=== PATIENT | female | born 1950 | race Hispanic/Latino ===

== ENCOUNTER 2016-05-22 10:53 | Outpatient (CLI) | payer MEDICARE ==
--- NOTE | 2016-05-23 11:09 | Vascular Lab Report ---
Right Lower Extremity Venous Duplex Study: Reason for Exam: Right leg pain. Comments on the Right: All veins visualized are freely compressible without evidence of internal echogenicity. Flow is spontaneous and phasic throughout. No evidence of acute or chronic thrombus is seen in any of the vessels visualized. Comments on the Left: A limited duplex study was done of the proximal veins of the left lower extremity. All veins visualized are freely compressible without evidence of internal echogenicity. Flow is spontaneous and phasic throughout. No evidence of acute or chronic thrombus is seen in any of the vessels visualized. Impression: No evidence of acute or chronic deep venous thrombosis in the right lower extremity.
== END 2016-05-22 10:54 | disposition home or self-care (01) ==
LOC: VAS 10:53
PROVIDERS: ATTEND Internal Medicine
DX: I70.211 Atherosclerosis of native arteries of extremities with intermittent claudication, right leg (principal)

== ENCOUNTER 2018-01-09 09:35 | Outpatient (CLI) | payer MEDICARE ==
--- NOTE | 2018-01-10 11:21 | Vascular Lab Report ---
Right Lower Extremity Venous Duplex Study: Reason for Exam: Pain and swelling of the right lower extremity. Comments on the Right: All veins visualized are freely compressible without evidence of internal echogenicity. Flow is spontaneous and phasic throughout. No evidence of acute or chronic thrombus is seen in any of the vessels visualized. Right common femoral vein reflux is greater than 5 seconds. Comments on the Left: A limited duplex study was done of the proximal veins of the left lower extremity. All veins visualized are freely compressible without evidence of internal echogenicity. Flow is spontaneous and phasic throughout. No evidence of acute or chronic thrombus is seen in any of the vessels visualized. Impression: No evidence of acute or chronic deep venous thrombosis in the right lower extremity. Right common femoral vein is greater than 5 seconds. Consider further evaluation.
== END 2018-01-09 09:36 | disposition home or self-care (01) ==
LOC: VAS 09:35
PROVIDERS: ATTEND Internal Medicine Cardiovascular Disease
DX: I87.2 Venous insufficiency (chronic) (peripheral) (principal); I10 Essential (primary) hypertension; K21.9 Gastro-esophageal reflux disease without esophagitis; E78.00 Pure hypercholesterolemia, unspecified; E03.9 Hypothyroidism, unspecified; Z86.73 Personal history of transient ischemic attack (TIA), and cerebral infarction without residual deficits

== ENCOUNTER 2020-12-10 00:26 | Emergency (ER) | payer MEDICARE ==
[2020-12-10] MEDS ORDERED: ACETAMINOPHEN 325 MG TAB PO ONE (01:12)
--- NOTE | 2020-12-10 01:12 | Emergency Department Report ---
ED Fall HPI - General Stated Complaint: HEAD INJURY Time Seen by Provider: 12/10/20 01:05 - History of Present Illness Initial Comments: 70-year-old female, history of hypertension, CVA, meningitis, brain tumor status post resection, seizure disorder, hypothyroidism, possible Parkinson's, presents to the ED following fall at home. Patient is Somali-speaking. Daughter at bedside. Patient lives with her daughter. Daughter was not at home. Daughter states patient called her and she had fallen. Patient was walking with her walker became dizzy, and fell. Daughter states is not unusual for her to have dizziness and be off balance. Patient is currently complaining of headache and some right sided neck pain. MD Complaint: fall -: This morning Fall From: standing Fall Witnessed: no Place Fall Occurred: home Loss of Consciousness: none Prolonged Down Time?: no Symptoms Prior to Fall: dizziness Location: head, neck Severity: mild Context: history of frequent falls Associated Symptoms: headache, neck pain. denies: numbness, weakness, chest paint, shortness of breath, abdominal pain - Related Data Home Medications Medication Instructions Recorded Confirmed Last Taken Simvastatin 20 mg PO QHS 07/12/10/29/16 1 Day Ago ~10/28/16 Previous Rx's Medication Instructions Recorded Last Taken Type Benazepril HCl [Lotensin] 40 mg PO DAILY #30 tablet 11/01/16 Unknown Rx Clopidogrel [Plavix] 75 mg PO QDAY #30 tablet 11/01/16 Unknown Rx Esomeprazole Magnesium [NexIUM] 20 mg PO QDAY #30 capsule.dr 11/01/16 Unknown Rx Ibandronate Sodium [Boniva] 150 mg PO QMONTH #3 tablet 11/01/16 Unknown Rx Metoprolol Xl [Metoprolol 200 mg PO QDAY #30 tablet 11/01/16 Unknown Rx SUCCINATE ER TAB] Mirtazapine [Remeron] 30 mg PO QHS #30 tablet 11/01/16 Unknown Rx Phenytoin [Dilantin] 300 mg PO QHS #30 capsule.er 11/01/16 Unknown Rx amLODIPine 10 mg PO DAILY #30 tablet 11/01/16 Unknown Rx levETIRAcetam [Keppra TAB] 500 mg PO BID #60 tablet 11/01/16 Unknown Rx levoFLOXacin [Levaquin] 750 mg PO QDAY #10 tablet 06/22/17 Unknown Rx oxyCODONE /ACETAMINOPHEN [Percocet 1 tab PO Q6HR PRN #20 tablet 11/01/16 Unknown Rx 5/325 mg] Amoxicillin/Potassium Clav 1 each PO BID #10 tablet 06/24/18 Unknown Rx [Augmentin 875-125 Tablet] HYDROcodone/APAP 5-325 [[place] 1 each PO Q4HR PRN #12 tablet 06/24/18 Unknown Rx 5/325] Allergies Allergy/AdvReac Type Severity Reaction Status Date / Time aspirin Allergy Rash Verified 06/24/18 12:56 iodine Allergy Anaphylaxis Verified 06/24/18 12:56 ranitidine HCl [From Zantac] Allergy Rash Verified 06/24/18 12:56 ED Review of Systems ROS: Stated complaint: HEAD INJURY Other details as noted in HPI Comment: All other systems reviewed and negative Constitutional: denies: chills, fever Respiratory: denies: shortness of breath Cardiovascular: denies: chest pain Gastrointestinal: denies: abdominal pain Neurological: headache ED Past Medical Hx - Past Medical History Hx Hypertension: Yes Hx CVA: Yes (2009) Hx Congestive Heart Failure: Yes Hx Diabetes: No Hx Seizures: Yes Hx Asthma: No Hx COPD: No Additional medical history: cardiac trouble - Surgical History Hx Coronary Stent: Yes Additional Surgical History: brain surgery for tumor - Social History Smoking Status: Never Smoker Substance Use Type: None - Medications Home Medications: Home Medications Medication Instructions Recorded Confirmed Last Taken Type Simvastatin 20 mg PO QHS 07/12/13 10/29/16 1 Day Ago History ~10/28/16 Benazepril HCl [Lotensin] 40 mg PO DAILY #30 tablet 11/01/16 Unknown Rx Clopidogrel [Plavix] 75 mg PO QDAY #30 tablet 11/01/16 Unknown Rx Esomeprazole Magnesium [NexIUM] 20 mg PO QDAY #30 capsule. 11/01/16 Unknown Rx Ibandronate Sodium [Boniva] 150 mg PO QMONTH #3 tablet 11/01/16 Unknown Rx Metoprolol Xl [Metoprolol 200 mg PO QDAY #30 tablet 11/01/16 Unknown Rx SUCCINATE ER TAB] Mirtazapine [Remeron] 30 mg PO QHS #30 tablet 11/01/16 Unknown Rx Phenytoin [Dilantin] 300 mg PO QHS #30 capsule.er 11/01/16 Unknown Rx amLODIPine 10 mg PO DAILY #30 tablet 11/01/16 Unknown Rx levETIRAcetam [Keppra TAB] 500 mg PO BID #60 tablet 11/01/16 Unknown Rx levoFLOXacin [Levaquin] 750 mg PO QDAY #10 tablet 11/01/16 Unknown Rx oxyCODONE /ACETAMINOPHEN [Percocet 1 tab PO Q6HR PRN #20 tablet 11/01/16 Unknown Rx 5/325 mg] Amoxicillin/Potassium Clav 1 each PO BID #10 tablet 06/24/18 Unknown Rx [Augmentin 875-125 Tablet] HYDROcodone/APAP 5-325 [[place] 1 each PO Q4HR PRN #12 tablet 06/24/18 Unknown Rx 5/325] ED Physical Exam - General General appearance: alert, in no apparent distress - Head Head exam: Present: atraumatic, normocephalic - Eye Eye exam: Present: PERRL, EOMI, other (Left medial subconjunctival hemorrhage (occurred yesterday per patient)) - ENT ENT exam: Present: mucous membranes moist - Neck Neck exam: Present: normal inspection, tenderness (mild right paraspinal), full ROM - Respiratory Respiratory exam: Present: normal lung sounds bilaterally. Absent: respiratory distress - Cardiovascular Cardiovascular Exam: Present: regular rate, normal rhythm - GI/Abdominal GI/Abdominal exam: Present: soft. Absent: distended, tenderness - Extremities Exam Extremities exam: Present: normal inspection. Absent: tenderness - Back Exam Back exam: Absent: vertebral tenderness - Neurological Exam Neurological exam: Present: alert, oriented X3, other (baseline jerking movements present) - Psychiatric Psychiatric exam: Present: normal affect, normal mood - Skin Skin exam: Present: warm, dry, intact, normal color ED Course Vital Signs 12/10/20 12/10/20 01:37 03:17 Temperature 98 F 96.6 F L Pulse Rate 73 70 Respiratory 18 22 Rate Blood Pressure 184/155 149/91 [Right] O2 Sat by Pulse 97 93 Oximetry ED Medical Decision Making - Radiology Data Radiology results: report reviewed, image reviewed - Medical Decision Making Patient presents ED for fall. CT head and C-spine are negative. No new neuro deficits on exam. Blood pressure is improved without administration of any antihypertensive medication. She will be discharged at this time. Outpatient follow-up advised, return precautions given. Critical care attestation.: If time is entered above; I have spent that time in minutes in the direct care of this critically ill patient, excluding procedure time. ED Disposition Clinical Impression: Fall, Head injury Disposition: DC-01 TO HOME OR SELFCARE Is pt being admited?: No Condition: Stable Instructions: Head Injury, Adult, Urvc-vs-Yypt [facility] [Primary Care Provider] - 3-5 Days PRIMARY CAREMD [Referring] - 3-5 Days Time of Disposition: 02:40
--- NOTE | 2020-12-10 02:24 | Cat Scan Report ---
CT HEAD WITHOUT CONTRAST INDICATION / CLINICAL INFORMATION: fall, injury; hx brain tumor resection. TECHNIQUE: All CT scans at this location are performed using CT dose reduction for ALARA by means of automated exposure control. COMPARISON: CT dated 10/28/16 FINDINGS: HEMORRHAGE: None. EXTRA-AXIAL SPACES: Normal in size and morphology for the patient's age. VENTRICULAR SYSTEM: Normal in size and morphology for the patient's age. CEREBRAL PARENCHYMA: Right frontoparietal encephalomalacia, likely postsurgical, is unchanged. No acu te territorial infarct. MIDLINE SHIFT / HERNIATION: None. CEREBELLUM / BRAINSTEM: Old right cerebellar infarct is unchanged. ORBITS: Normal as visualized. SOFT TISSUES: No significant abnormality. SKULL: Right craniotomy findings are unchanged. PARANASAL SINUSES / MASTOID AIR CELLS: Normal as visualized. ADDITIONAL FINDINGS: None. IMPRESSION: 1. No acute intracranial abnormality. 2. Postoperative, chronic, and age-related findings are unchanged. Signer Name: Nirali Mcneal MD Signed: 12/10/2020 2:20 AM Workstation Name: [id number]
--- NOTE | 2020-12-10 02:25 | Cat Scan Report ---
CT CERVICAL SPINE WITHOUT CONTRAST INDICATION / CLINICAL INFORMATION: fall, injury. Neck pain. TECHNIQUE: Axial CT images were obtained through the cervical spine. Sagittal and coronal reformatted images were produced. All CT scans at this location are performed using CT dose reduction for ALARA by means of automated exposure control. COMPARISON: None available. FINDINGS: VERTEBRAE: No significant abnormality. ALIGNMENT: No significant abnormality. DISC SPACES: No significant abnormality. FACET JOINTS: No significant abnormality. CRANIOCERVICAL JUNCTION:No significant abnormality. SPINAL CANAL: No significant abnormality. PARASPINAL SOFT TISSUES: No significant abnormality. ADDITIONAL FINDINGS: None. LUNG APICES: No significant abnormality of visualized lungs. IMPRESSION: 1. No significant abnormality. Signer Name: Nirali Mcneal MD Signed: 12/10/2020 2:21 AM Workstation Name: [id number]
[2020-12-10 03:18] VITALS: BP 149/91
== END 2020-12-10 03:25 | disposition home or self-care (01) ==
LOC: ED 00:26
DX: S09.90XA Unspecified injury of head, initial encounter (principal); I11.0 Hypertensive heart disease with heart failure; I50.9 Heart failure, unspecified; R56.9 Unspecified convulsions; Z86.73 Personal history of transient ischemic attack (TIA), and cerebral infarction without residual deficits; Z88.8 Allergy status to other drugs, medicaments and biological substances; Z88.6 Allergy status to analgesic agent; Z91.041 Radiographic dye allergy status; W19.XXXA Unspecified fall, initial encounter; Y93.89 Activity, other specified; Y92.098 Other place in other non-institutional residence as the place of occurrence of the external cause; Y99.8 Other external cause status
CPT/HCPCS: 70450; 72125; 99284